=== PATIENT | female | born 1995 | race Caucasian/White ===

== ENCOUNTER 2021-07-07 15:30 | Outpatient (CLI) | payer BC ==
[2021-07-07 16:52] LABS: BHCG - Serum Negative (NEGATIVE); Pregs Control Background? CLEAR/WHITE (CLR/WHITE); Pregs Control Bar Appear? YES (CONTROL BAR)
[2021-07-08 17:41] LABS: SARS-CoV-2 PCR by NAA Not Detected (NotDetected)
== END 2021-07-07 15:31 | disposition home or self-care (01) ==
LOC: LABBT 15:30
PROVIDERS: ATTEND Student in an Organized Health Care Education/Training Program
DX: Z01.812 Encounter for preprocedural laboratory examination (principal); Z20.822 Contact with and (suspected) exposure to COVID-19
CPT/HCPCS: 84703; 85014; U0003; U0005

== ENCOUNTER 2021-07-11 06:37 | Day surgery (SDC) | payer BC ==
[2021-07-11] MEDS ORDERED: Acetaminophen 500 MG TAB ONE (07:16)
[2021-07-11] MEDS ORDERED: Fentanyl 100 MCG/2 ML VIAL ONE ×3 (07:20→09:40)
[2021-07-11] MEDS ORDERED: Ketamine 50 MG/ML (10ML VIAL) ONE (07:21)
[2021-07-11] MEDS ORDERED: Ondansetron PF 4 MG/2 ML Vial ONE (08:07)
[2021-07-11] MEDS ORDERED: PROPOFOL 200 MG/20 ML VIAL ONE (08:07)
[2021-07-11] MEDS ORDERED: Lidocaine 1% PF 5 ML VIAL ONE (08:07)
[2021-07-11] MEDS ORDERED: Dexamethasone 20 MG/5 ML VIAL ONE (08:07)
[2021-07-11] MEDS ORDERED: Promethazine HCl 25 MG/ML VIAL ONE (09:44)
== END 2021-07-11 11:53 | disposition home or self-care (01) ==
LOC: SDC 06:37
PROVIDERS: ATTEND Student in an Organized Health Care Education/Training Program
PROC: 0CTPXZZ Resection of Tonsils, External Approach (ICD-10-PCS; principal; 2021-07-11)
DX: J35.01 Chronic tonsillitis (principal); J02.9 Acute pharyngitis, unspecified; Z79.2 Long term (current) use of antibiotics; Z79.899 Other long term (current) drug therapy
CPT/HCPCS: 88304; J1100; J2405; J2550; J2704; J3010